=== PATIENT | female | born 1970 | race Caucasian/White ===

== ENCOUNTER 2018-05-18 10:00 | Inpatient (IN) | payer OTHER ==
[~2018-05-18] VITALS: Ht 167.6 cm; Wt 83.5 kg
[2018-05-18] MEDS ORDERED: DILTIAZEM 24HR240 MG PO (11:33)
[2018-05-18] MEDS ORDERED: LISINOPRIL5 MG PO (11:33)
[2018-05-18] MEDS ORDERED: HYDROCHLOROTHIA25 MG PO (11:34)
[2018-05-18] MEDS ORDERED: METFORMIN HCL1000 M1 PO (11:34)
[2018-05-18] MEDS ORDERED: LIPITOR40 MG PO (11:34)
[2018-05-28] MEDS ORDERED: NEURONTIN300 MG PO (09:23)
[2018-05-28] MEDS ORDERED: ULTRAM50 MG PO (09:23)
[2018-05-28] MEDS ORDERED: TYLENOL EXTRA500 MG PO (09:23)
[2018-05-28] MEDS ORDERED: MIRALAX17 GM PO (09:23)
== END 2018-05-29 12:55 | disposition home or self-care (01) | DRG 355 ==
LOC: SURG 05-26 06:30 → O/R 05-26 06:30 → SURH 05-26 09:30 → SURG 05-26 19:55
PROVIDERS: ADMIT Surgery
PROC: 0WUF4JZ Supplement Abdominal Wall with Synthetic Substitute, Percutaneous Endoscopic Approach (ICD-10-PCS; 2018-05-26)
PROC: 0KXL0Z6 Transfer Left Abdomen Muscle, Transverse Rectus Abdominis Myocutaneous Flap, Open Approach (ICD-10-PCS; 2018-05-26)
PROC: 0KXK0Z6 Transfer Right Abdomen Muscle, Transverse Rectus Abdominis Myocutaneous Flap, Open Approach (ICD-10-PCS; 2018-05-26)
PROC: 0WUF4JZ Supplement Abdominal Wall with Synthetic Substitute, Percutaneous Endoscopic Approach (ICD-10-PCS; principal; 2018-05-26 09:30)
DX: K43.0 Incisional hernia with obstruction, without gangrene (principal); K42.0 Umbilical hernia with obstruction, without gangrene; I10 Essential (primary) hypertension; E11.9 Type 2 diabetes mellitus without complications; E78.49 Other hyperlipidemia; K57.30 Diverticulosis of large intestine without perforation or abscess without bleeding; E66.8 Other obesity